=== PATIENT | female | born 1980 | race Caucasian/White ===

== ENCOUNTER → 2017-02-22 | Outpatient (CLI) | payer OTHER ==
[~2017-02-22] MED LIST: CYTO200T PO; MULTTAB20; PREN1TAB30 PO
== END ==
LOC: HPND 08:36
PROVIDERS: ATTEND Obstetrics & Gynecology
DX: O09.521 Supervision of elderly multigravida, first trimester (principal); O34.211 Maternal care for low transverse scar from previous cesarean delivery
CPT/HCPCS: 76801; 76815

== ENCOUNTER → 2017-02-23 | Day surgery (SDC) | payer OTHER ==
--- NOTE | 2017-02-22 19:59 | MH ---
cc: SHARLENE OLIVERA DATE OF ADMISSION 02/23/2017 DATE OF 1980 ADMISSION DIAGNOSIS demise at 12-13 weeks gestation. HISTORY OF PRESENT ILLNESS The patient is 36-year-old , white female, para 3-0-0-3 with a LMP of 11/21/2016, EDC of 08/28/2017. Ultrasound of 02/21/2017 showed a viable . She presented to the OB DIAGNOSTIC clinic today for her first TM screen, this revealed a demise at 12 weeks and 5 days. Normal fluid. She is now admitted for D&C. PAST MEDICAL AND SURGICAL HISTORY Previous surgery laparoscopic cholecystectomy in 1996. OBSTETRICAL HISTORY One vaginal and two C-sections. MEDICATIONS Vitamins. ALLERGIES None. TRANSFUSIONS None. SOCIAL HISTORY She is a [employer] teacher. SOCIAL HISTORY . Alcohol, tobacco and drugs are none. FAMILY HISTORY Noncontributory. PHYSICAL EXAMINATION GENERAL: This is a well-nourished, well-developed white female. VITAL SIGNS: Stable. HEENT: Examination is normal. CHEST: Clear. HEART: Regular rate. BREASTS: Symmetrical. ABDOMEN: Benign. PELVIC: Normal external genitalia and Bartholin's, urethral, [facility]. Vagina is normal. Cervix is normal. Uterus is 12-13 weeks size. Adnexa is nonpalpable. ASSESSMENT As above. PLAN We will administer Cytotec 100 micrograms per vagina 12 hours prior for cervical ripening. She will be admitted for a D&C on 02/23/2017. While in the office I explained the procedures, risks, benefits, complications. The patient would like to proceed. MD ELVIA Lindo/KK /7:33 PM /7:52 PM
[~2017-02-23] VITALS: Ht 157.5 cm; Wt 86.7 kg
[~2017-02-23] MED LIST changes: +*HYDROmorphone PF 1 MG VIAL PERIprocedural Use ONLY ONE; +ACETAMINOPHEN 1000 MG/100 ML VIAL IV SCH; +CHLORHEXIDINE GLUCONATE 2 % 1 PACK (2 CLOTHS) TOPICAL SCH; +DO NOT ADM ANY ANTICOAGULANT DRUGS PRN; +FAMOTIDINE 20 MG/2 ML VIAL ONE; +HYDROmorphone HCL PF 1 MG/ML VIAL IV ONE; +INSULIN HUMAN REGULAR 1,000 UNITS/10 ML VIAL SQ PRN; +KETOROLAC TROMETHAMINE 30 MG/ML (IVP) VIAL ONE; +KETOROLAC TROMETHAMINE 60 MG/2 ML (IM) VIAL IM ONE; +LACTATED RINGER'S 1000 ML IV SCH; +LORazepam 2 MG/ML VIAL IV ONE; +LORazepam 2 MG/ML VIAL ONE; +METOPROLOL TARTRATE 25 MG TAB PO PRN; +MIDAZOLAM HCL 2 MG/2 ML VIAL ONE; +ONDANSETRON HCL 4 MG/2 ML VIAL IV PUSH ONE; +OXYTOCIN 10 UNIT/ML AMP IV ONE; +OXYTOCIN 10 UNIT/ML AMP ONE; +POVIDONE IODINE 5% (ANTISEPSIS KIT) 4 APPLICATIONS EACH NARE SCH; +PROPOFOL 200 MG/20 ML AMP IV ONE; +SODIUM CHLORID 0.9% 500 ML IV SCH; +ceFAZolin 1,000 MG/NS 100 ML IV SCH
[2017-02-23 13:21] VITALS: BP 125/74; PULSE 86; RESP 16; TEMP 98.9; O2SAT 98
[2017-02-23 17:49] VITALS: BP 125/85; PULSE 91; RESP 18; TEMP 97.7; O2SAT 97
--- NOTE | 2017-02-28 09:24 | MP ---
cc: SHARLENE LOIVERA DATE OF SURGERY 02/23/17 PREOPERATIVE DIAGNOSIS demise at 12-13 weeks gestation. POSTOPERATIVE DIAGNOSIS demise at 12-13 weeks gestation. PROCEDURE Suction and sharp D&C. ANESTHESIA General LMA ESTIMATED BLOOD LOSS About 300 mL FLUIDS 1 liter crystalloid. OBJECTIVE FINDINGS Following induction of adequate general LMA anesthesia, the patient was prepped and draped supine on the operating table dorsal lithotomy position partition usual sterile fashion with the bladder being drained via Johns catheterization. Exam under anesthesia revealed a 12 weeks' size anterior uterus. Heavy weighted speculum placed on the posterior fornix of the vagina. The anterior lip of the cervix grasped with single tooth tenaculum. The residual Cytotec was removed. The cervix had dilated nicely with Cytotec and was sounded to 12 cm and gently dilated to a #20 Hanks dilator. A #10 suction curette was passed to remove POC material. Polyp forceps used to tease down initial tissue and the cavity was thoroughly curetted with a medium sharp curette and was clear. Suction curette was passed again to sheepskin pickler loose debris. The tenaculum sites were sutured with 2-0 chromic. Uterus now 8 weeks' size with minimal bleeding. The counts were correct. The patient taken out of [facility]. She was awakened and taken to the recovery room in good condition. MD ELVIA Lindo/ /3:54 PM /9:19 AM DARY
== END | disposition home or self-care (01) ==
LOC: HSDC 12:12
PROVIDERS: ATTEND Obstetrics & Gynecology
DX: O03.4 Incomplete spontaneous abortion without complication (principal)
CPT/HCPCS: 01965; 59812; 88305; J0131; J0690; J1170; J1885; J2250; J2405; J2590; J3010; J7120; J2060